=== PATIENT | female | born 1965 | race American Indian/Alaskan Native ===

== ENCOUNTER 2019-04-12 13:20 | Emergency (ER) | payer MEDICAID ==
[2019-04-12 14:14] VITALS: BP 197/84
--- NOTE | 2019-04-12 18:32 | Emergency Department Report ---
Blank Doc - Documentation Documentation: 53-year-old female that presents with nodule mass to the neck and foreign body sensation. This initial assessment/diagnostic orders/clinical plan/treatment(s) is/are subject to change based on patient's health status, clinical progression and re- assessment by fellow clinical providers in the ED. Further treatment and workup at subsequent clinical providers discretion. Patient/guardians urged not to elope from the ED as their condition may be serious if not clinically assessed and managed. Initial orders include: 1- Patient sent to [facility] for further evaluation and treatment 2- labs 3- Xray
[2019-04-12 19:03] LABS: Basophils % (Auto) 0.6 % (0.0-1.8); Eosinophils # (Auto) 0.1 K/mm3 (0.0-0.4); Eosinophils % (Auto) 1.7 % (0.0-4.3); Hemoglobin 14.8 gm/dl (10.1-14.3); Lymphocytes # (Auto) 2.4 K/mm3 (1.2-5.4); Lymphocytes % (Auto) 48.4 % (13.4-35.0); Mean Corpuscular HGB Conc 35 % (30-34); Mean Corpuscular Volume 92 fl (79-97); Monocytes # (Auto) 0.6 K/mm3 (0.0-0.8); Monocytes % (Auto) 12.4 % (0.0-7.3); Platelet Count 226 K/mm3 (140-440); Red Blood Count 4.56 M/mm3 (3.65-5.03); Red Cell Distribution Width 13.5 % (13.2-15.2)
[2019-04-12 19:25] LABS: BUN/Creatinine Ratio 13; Blood Urea Nitrogen 8 mg/dL (7-17); Hemolysis Index 6
--- NOTE | 2019-04-12 19:26 | XRay Report ---
AP AND LATERAL VIEWS OF THE NECK INDICATION: neck mass and swelling w/ foreign body sensation. COMPARISON: No relevant prior imaging study available. FINDINGS: There is no retropharyngeal/prevertebral soft tissue swelling. No radiodense foreign bodies are seen within the cervical airway. The epiglottis appears unremarkable . Cricopharyngeal calcifications are noted. Lung apices are clear. There is mild lower cervical spond ylosis. IMPRESSION: 1. No acute findings. Signer Name: Curt Joshi MD Signed: 04/12/2019 7:21 PM Workstation Name: [id number]
== END 2019-04-12 22:12 | disposition left against medical advice (07) ==
LOC: ED 13:20
DX: R22.1 Localized swelling, mass and lump, neck (principal); Z53.21 Procedure and treatment not carried out due to patient leaving prior to being seen by health care provider
CPT/HCPCS: 36415; 70360; 80048; 84443; 85025

== ENCOUNTER 2019-04-21 11:31 | Outpatient (CLI) | payer MEDICAID ==
[2019-04-21 12:34] LABS: Chol/HDL Ratio 2.78 %
[2019-04-25 12:10] LABS: Vitamin D, 25-OH, D2 <4 ng/mL
== END 2019-04-21 11:32 | disposition home or self-care (01) ==
LOC: LAB 11:31
PROVIDERS: ATTEND Internal Medicine
DX: I10 Essential (primary) hypertension (principal); E04.2 Nontoxic multinodular goiter; Z12.13 Encounter for screening for malignant neoplasm of small intestine; Z13.220 Encounter for screening for lipoid disorders; R79.89 Other specified abnormal findings of blood chemistry
CPT/HCPCS: 36415; 80061; 82306; 82607; 83036; 84443

== ENCOUNTER 2019-04-26 08:11 | Outpatient (CLI) | payer MEDICAID ==
--- NOTE | 2019-04-26 09:16 | Mammography Report ---
DIGITAL SCREENING MAMMOGRAM WITH CAD, 04/26/2019 INDICATION: Routine screening mammography. TECHNIQUE: Digital bilateral 2D mammography was obtained in the craniocaudal and mediolateral obliq ue projections. This examination was interpreted with the benefit of Computer-Aided Detection analysi s. COMPARISON: None. Her last mammogram was over 10 years ago. FINDINGS: Breast Density: The breasts are heterogeneously dense, which may obscure small masses. There is no evidence of dominant mass, suspicious calcifications or architectural distortion in eithe r breast. IMPRESSION: No mammographic evidence of malignancy. Follow up recommendation: Routine yearly BI-RADS Category 1: Negative. A "normal" or negative report should not discourage follow up or biopsy of a clinically significant f inding. A written summary of these findings will be mailed to the patient. The patient will be entered into a mammography reporting system which will generate a reminder letter for the patient's next appointmen t at the appropriate interval. The [employer] recommends yearly mammograms starting at age 40 and continuing as l bucky as a woman is in good health. Breast MRI is recommended for women with an approximate 20-25% or greater lifetime risk of breast cancer, including women with a strong family history of breast or ova zachary cancer or who have been treated for Hodgkin's disease. Signer Name: Yoni Gordillo MD Signed: 04/26/2019 9:12 AM Workstation Name: [id number]
--- NOTE | 2019-04-26 10:09 | Ultrasound Report ---
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 COMPARISON: None available. FINDINGS: RIGHT LOBE: Size = 5.6 x 1.7 x 1.4 cm. - Echogenicity: Normal. - Nodules < 1 cm: None. - Nodules >= 1 cm or Suspicious Nodules: None. LEFT LOBE: Size = 5.4 x 1.6 x 1.3 cm. - Echogenicity: Normal. - Nodules < 1 cm: None. - Nodules >= 1 cm or Suspicious Nodules: None. ISTHMUS: Normal echotexture. Thickness = 0.7 cm. - Nodules < 1 cm: None. - Nodules >= 1 cm or Suspicious Nodules: -- NODULE # 1 -- Location: isthmus -- Size: 1.4 x 1.3 x 1.4 cm. Average size = 1.4 cm. -- Composition: Mixed cystic & solid = 1 point -- Echogenicity: Hypoechoic = 2 points -- Shape: Hqlze-kima-unou = 0 points -- Margin: Smooth = 0 points -- Echogenic Foci: None = 0 points -- Additional Findings: None. -- ACR TI-RADS Score = 3. -- ACR TI-RADS Category = TR-3 (3 points). LYMPH NODES: No abnormal lymph nodes. PARATHYROID GLANDS: No abnormal parathyroid gland identified. ADDITIONAL FINDINGS: None. IMPRESSION: Thyroid nodule as above. A follow-up thyroid ultrasound in one year is recommended. NOTE: Nodule size based on mean (average) size of 3 dimensions. NOTE: Nodules < 1 cm do not typically require follow-up or FNA unless there are suspicious features ( SAMY, 2015) ACR TI-RADS Thyroid Nodule Recommendations TI-RADS 1 (0 points) ----- BENIGN. No Fine Needle Aspirate biopsy (FNA) or follow-up. TI-RADS 2 (1-2 points) -- NOT SUSPICIOUS. No FNA or follow-up. TI-RADS 3 (3 points) ----- MILDLY SUSPICIOUS. Follow up in 1 year if >= 1.5 cm. FNA if >= 2.5 cm. TI-RADS 4 (4-6 points) -- MODERATELY SUSPICIOUS. Follow up in 1 year if >= 1.0 cm. FNA if >= 1.5 cm. TI-RADS 5 (7+ points) --- HIGHLY SUSPICIOUS. Follow up in 1 year if >= 0.5 cm. FNA if >= 1.0 cm. Signer Name: Donovan Candelaria MD Signed: 04/26/2019 10:05 AM Workstation Name: [id number]
== END 2019-04-26 08:12 | disposition home or self-care (01) ==
LOC: MAMMO 08:11
PROVIDERS: ATTEND Internal Medicine
DX: Z12.31 Encounter for screening mammogram for malignant neoplasm of breast (principal); E04.2 Nontoxic multinodular goiter
CPT/HCPCS: 76536; 77067

== ENCOUNTER 2019-05-26 21:47 | Observation (INO) | payer MEDICAID ==
--- NOTE | 2019-05-26 21:53 | Emergency Department Report ---
ED Neuro Deficit HPI - General Stated Complaint: CODE STROKE Time Seen by Provider: 05/26/19 21:48 Source: patient, EMS, old records reviewed Mode of arrival: Stretcher Limitations: Other (Aphasia) - History of Present Illness Initial Comments: Mrs. Lu is a 53-year-old female history of hypertension, CVA x2 who presents with syncope and slurred speech. Family member witnessed that she appeared dazed. She briefly passed out. She then awakened with abnormal speech and un ilateral weakness possibly left side. Patient is tearful with aphasia. Unable to obtain history from patient. Symptoms occurred 30 minutes prior to arrival Patient did drink alcohol this evening. She was seen in our emergency department March for throat issues otherwise no other history available in the emergency department electronic medical record. -: Sudden Location: speech, other (Unilateral weakness) Presenting Symptoms: Present: Weak/Paralyzed One Side History of same: Yes Place: home Severity: severe Quality: weak, numb, tingling Improves With: time Context: sudden onset Associated Symptoms: syncope Treatments Prior to Arrival: none - Related Data Allergies/Adverse Reactions: Allergies Allergy/AdvReac Type Severity Reaction Status Date / Time sulfamethoxazole Allergy Hives Verified 04/12/19 13:30 [From Bactrim] trimethoprim [From Bactrim] Allergy Hives Verified 04/12/19 13:30 ED Review of Systems ROS: Stated complaint: CODE STROKE Other details as noted in HPI Comment: Unobtainable due to pts medical conditions (Patient is aphasic) ED Past Medical Hx - Past Medical History Previous Medical History?: Yes Hx Hypertension: Yes Hx CVA: Yes - Social History Smoking Status: Current Every Day Smoker Substance Use Type: Marijuana ED Neuro Physical Exam - General General appearance: alert, other (Tearful aphasic) Suspected Stroke: Yes - Head Head exam: Present: atraumatic, normocephalic - Eye Eye exam: Present: normal appearance - ENT ENT exam: Present: mucous membranes moist - Neck Neck exam: Present: normal inspection, full ROM - Respiratory Respiratory exam: Present: normal lung sounds bilaterally. Absent: respiratory distress, wheezes, rales, rhonchi - Cardiovascular Cardiovascular Exam: Present: regular rate, normal rhythm, normal heart sounds. Absent: systolic murmur, diastolic murmur, rubs, gallop - GI/Abdominal GI/Abdominal exam: Present: soft, normal bowel sounds. Absent: distended, tenderness, guarding, rebound - Extremities Exam Extremities exam: Present: normal inspection - Neurological Exam Neurological exam: Present: alert - NIHSS Assessment Interval: Baseline 1a. Level of Consciousness: alert/keenly responsive 1b. LOC Questions: aphasic 1c. LOC Commands: performs tasks correctly 2. Best Gaze: normal 3. Visual: no visual loss 4. Facial Palsy: normal symmetrical movement 5b. Motor Arm Right: no drift 5a. Motor Arm Left: no drift 6a. Motor Leg Left: no drift 6b. Motor Leg Right: no drift 7. Limb Ataxia: absent 8. Sensory: normal 9. Best Language: mild/moderate aphasia 10. Dysarthria: mild/moderate dysarthria 11. Extinction/Inattention: no abnormality Total Score: 4 Stroke Severity: Minor Stroke - Psychiatric Psychiatric exam: Present: normal affect, normal mood - Skin Skin exam: Present: warm, dry, intact, normal color. Absent: rash ED Course Vital Signs 05/26/19 05/26/19 05/26/19 22:02 22:14 22:15 Temperature 99.2 F Pulse Rate 83 68 Respiratory 14 16 Rate Blood Pressure 117/66 O2 Sat by Pulse 95 Oximetry - Lab Data Result diagrams: 05/26/19 22:15 05/26/19 22:15 Lab Results 05/26/19 05/26/19 05/26/19 Range/Units 22:15 22:15 22:15 WBC 4.7 (4.5-11.0) K/mm3 RBC 4.74 (3.65-5.03) M/mm3 Hgb 14.9 H (10.1-14.3) gm/dl Hct 43.7 H (30.3-42.9) % MCV 92 (79-97) fl MCH 32 (28-32) pg MCHC 34 (30-34) % RDW 13.2 (13.2-15.2) % Plt Count 250 (140-440) K/mm3 Lymph % (Auto) 47.2 H (13.4-35.0) % [place] % (Auto) 9.3 H (0.0-7.3) % Eos % (Auto) 2.0 (0.0-4.3) % Baso % (Auto) 1.1 (0.0-1.8) % Lymph # 2.2 (1.2-5.4) K/mm3 [place] # 0.4 (0.0-0.8) K/mm3 Eos # 0.1 (0.0-0.4) K/mm3 Baso # 0.1 (0.0-0.1) K/mm3 Seg Neutrophils % 40.4 (40.0-70.0) % Seg Neutrophils # 1.9 (1.8-7.7) K/mm3 PT 12.6 (12.2-14.9) Sec. INR 0.93 (0.87-1.13) APTT 23.5 L (24.2-36.6) Sec. Thrombin Time 17.8 (15.1-19.6) Sec. Sodium 139 (137-145) mmol/L Potassium 3.6 (3.6-5.0) mmol/L Chloride 103.4 (98-107) mmol/L Carbon Dioxide 24 (22-30) mmol/L Anion Gap 15 mmol/L BUN 15 (7-17) mg/dL Creatinine 0.8 (0.7-1.2) mg/dL Estimated GFR > 60 ml/min BUN/Creatinine Ratio 19 % Glucose 145 H (65-100) mg/dL Calcium 9.8 (8.4-10.2) mg/dL Total Bilirubin 0.20 (0.1-1.2) mg/dL AST 36 (5-40) units/L ALT 41 (7-56) units/L Alkaline Phosphatase 80 (35-129) units/L Troponin T < 0.010 (0.00-0.029) ng/mL Total Protein 8.1 (6.3-8.2) g/dL Albumin 4.1 (3.9-5) g/dL Albumin/Globulin Ratio 1.0 % Plasma/Serum Alcohol (0-0.07) % 04/03/ Range/Units 22:15 WBC (4.5-11.0) K/mm3 RBC (3.65-5.03) M/mm3 Hgb (10.1-14.3) gm/dl Hct (30.3-42.9) % MCV (79-97) fl MCH (28-32) pg MCHC (30-34) % RDW (13.2-15.2) % Plt Count (140-440) K/mm3 Lymph % (Auto) (13.4-35.0) % [place] % (Auto) (0.0-7.3) % Eos % (Auto) (0.0-4.3) % Baso % (Auto) (0.0-1.8) % Lymph # (1.2-5.4) K/mm3 [place] # (0.0-0.8) K/mm3 Eos # (0.0-0.4) K/mm3 Baso # (0.0-0.1) K/mm3 Seg Neutrophils % (40.0-70.0) % Seg Neutrophils # (1.8-7.7) K/mm3 PT (12.2-14.9) Sec. INR (0.87-1.13) APTT (24.2-36.6) Sec. Thrombin Time (15.1-19.6) Sec. Sodium (137-145) mmol/L Potassium (3.6-5.0) mmol/L Chloride (98-107) mmol/L Carbon Dioxide (22-30) mmol/L Anion Gap mmol/L BUN (7-17) mg/dL Creatinine (0.7-1.2) mg/dL Estimated GFR ml/min BUN/Creatinine Ratio % Glucose (65-100) mg/dL Calcium (8.4-10.2) mg/dL Total Bilirubin (0.1-1.2) mg/dL AST (5-40) units/L ALT (7-56) units/L Alkaline Phosphatase (35-129) units/L Troponin T (0.00-0.029) ng/mL Total Protein (6.3-8.2) g/dL Albumin (3.9-5) g/dL Albumin/Globulin Ratio % Plasma/Serum Alcohol < 0.01 (0-0.07) % - EKG Data -: EKG Interpreted by Me EKG shows normal: sinus rhythm, axis, intervals, QRS complexes, ST-T waves Rate: normal Interpretation: normal EKG - Radiology Data Radiology results: report reviewed CT head without acute process AP portable chest left basilar atelectasis or airspace disease developing - Medical Decision Making Ms. Lu presents with syncope slurred speech general weakness. Normal exam but exception of dysarthria aphasia. I agree with tele-neurologist. She has not currently a candidate for thrombolytics TPA with minor symptoms and equivocal examination. According to tele-neurologist's recommendations we will admit to the hospital service for observation blood pressure control neurochecks. I reviewed the images of chest x-ray: I do not suspect acute infectious process. Patient does not have fever cough. Critical Care Time: Yes Critical care attestation.: If time is entered above; I have spent that time in minutes in the direct care of this critically ill patient, excluding procedure time. 40 minutes of critical care time excluding procedures were used in the care of the patient. I reviewed electronic record. I discussed treatment plan with the nursing team members at the bedside. I came immediately to the bedside upon arrival. I obtained history from EMS. Code stroke was initiated prior to patient's arrival.Patient required multiple interventions and reassessments. ED Disposition Clinical Impression: Syncope, Hypertensive urgency, TIA (transient ischemic attack) Disposition: OP ADMIT IP TO THIS HOSP Is pt being admited?: Yes Does the pt Need Aspirin: No Condition: Stable
[2019-05-26] MEDS ORDERED: ASPIRIN 81 MG TAB CHEW PO ONE (22:09)
--- NOTE | 2019-05-26 22:09 | Emergency Department Report ---
ED Neuro Deficit HPI - General Stated Complaint: CODE STROKE Time Seen by Provider: 05/26/19 21:48 Source: patient, EMS, old records reviewed Mode of arrival: Stretcher Limitations: Other (Aphasia) - History of Present Illness Initial Comments: [facility] Date of Service: 05/26/2019 21:43:08 Impression: AMS Comments/Sign-Out: Acute onset loss of consciousness event with associated etoh intoxication. Non focal exam except for sensory asymm and effort dependent sx x 4 extremitites (conversion in appearance). Due to previous stroke admit for eval Metrics: Last Known Well: 05/26/2019 21:15:00 [employer] Notification Time: 05/26/2019 21:42:32 Arrival Time: 05/26/2019 21:47:00 Stamp Time: 05/26/2019 21:43:08 Time First Login Attempt: 05/26/2019 21:48:04 Video Start Time: 05/26/2019 21:48:04 Symptoms: LOC NIHSS Start Assessment Time: 05/26/2019 22:01:43 Patient is not a candidate for tPA. Patient was not deemed candidate for tPA thrombolytics because of Resolved symptoms (no residual disabling symptoms). Video End Time: 05/26/2019 22:06:52 CT head showed no acute hemorrhage or acute core infarct. Clinical Presentation is not Suggestive of Large Vessel Occlusive Disease ED Physician notified of diagnostic impression and management plan on 05/26/2019 22:06:51 Our recommendations are outlined below. Recommendations: Activate Stroke Protocol Admission/Order Set Stroke/Telemetry Floor Neuro Checks Bedside Swallow Eval DVT Prophylaxis IV Fluids, Normal Saline Head of Bed Below 30 Degrees Euglycemia and Avoid Hyperthermia (PRN Acetaminophen) Antiplatelet Therapy Recommended EEG Cardiovascular work up for syncope Recommended Scan: MRI Head MRA Head and Neck Without Contrast When Available - Stroke Protocol Echocardiogram - Transthoracic Echocardiogram Lipid Panel to Be Obtained, if Not Done in the Last 30 Days Therapies: Physical Therapy, Occupational Therapy, Speech Therapy Assessment When Applicable Dysphaghia Screen: Swallow Evaluation, Bedside NPO Until Swallow Evaluation DVT prophylaxis: Choice of Primary Team Disposition: Neurology Follow Up Recommended Sign Out: Discussed with Emergency Department Provider History of Present Illness: Patient is a 53 year old Female. Patient was brought by EMS for symptoms of LOC Hx of HTN and Stroke. Was with family and noted to be starring out in to space and LOC event, awoke with slurred speech and right sided weakness. ED staff noting strong etoh smell CT head showed no acute hemorrhage or acute core infarct. Examination: BP(188/89), Blood Glucose(114) 1A: Level of Consciousness - Alert; keenly responsive + 0 1B: Ask Month and Age - Both Questions Right + 0 1C: Blink Eyes & Squeeze Hands - Performs Both Tasks + 0 2: Test Horizontal Extraocular Movements - Normal + 0 3: Test Visual Rojas - No Visual Loss + 0 4: Test Facial Palsy (Use Grimace if Obtunded) - Normal symmetry + 0 5A: Test Left Arm Motor Drift - No Drift for 10 Seconds + 0 5B: Test Right Arm Motor Drift - No Drift for 10 Seconds + 0 6A: Test Left Leg Motor Drift - No Drift for 5 Seconds + 0 6B: Test Right Leg Motor Drift - No Drift for 5 Seconds + 0 7: Test Limb Ataxia (FNF/Heel-Ghotra) - No Ataxia + 0 8: Test Sensation - Mild-Moderate Loss: Less Sharp/More Dull + 1 9: Test Language/Aphasia - Normal; No aphasia + 0 10: Test Dysarthria - Normal + 0 11: Test Extinction/Inattention - No abnormality + 0 NIHSS Score: 1 Patient was informed the Neurology Consult would happen via TeleHealth consult by way of interactive audio and video telecommunications and consented to receiving care in this manner. Due to the immediate potential for life-threatening deterioration due to underlying acute neurologic illness, I spent 35 minutes providing critical care. This time includes time for face to face visit via telemedicine, review of medical records, imaging studies and discussion of findings with providers, the patient and/or family. Dr Kendrick [facility] Case [id number] Location: speech, other (Unilateral weakness) History of same: Yes Place: home Severity: severe Quality: weak, numb, tingling Improves With: time Treatments Prior to Arrival: none - Related Data Allergies/Adverse Reactions: Allergies Allergy/AdvReac Type Severity Reaction Status Date / Time sulfamethoxazole Allergy Hives Verified 04/12/19 13:30 [From Bactrim] trimethoprim [From Bactrim] Allergy Hives Verified 04/12/19 13:30 ED Review of Systems ROS: Stated complaint: CODE STROKE Other details as noted in HPI ED Past Medical Hx - Past Medical History Previous Medical History?: Yes Hx Hypertension: Yes Hx CVA: Yes - Social History Smoking Status: Current Every Day Smoker Substance Use Type: Marijuana ED Neuro Physical Exam - General Limitations: Other (Aphasia) General appearance: alert, other (Tearful aphasic) Suspected Stroke: No Critical care attestation.: If time is entered above; I have spent that time in minutes in the direct care of this critically ill patient, excluding procedure time. ED Disposition Clinical Impression: Syncope Disposition: [id number] OP ADMIT IP TO THIS HOSP Is pt being admited?: Yes Condition: Stable Instructions: Syncope (ED) Referrals: PRIMARY CARE, [Primary Care Provider] - 3-5 Days
[2019-05-26 22:23] LABS: Basophils # (Auto) 0.1 K/mm3 (0.0-0.1); Basophils % (Auto) 1.1 % (0.0-1.8); Eosinophils # (Auto) 0.1 K/mm3 (0.0-0.4); Hematocrit 43.7 % (30.3-42.9); Hemoglobin 14.9 gm/dl (10.1-14.3); Lymphocytes # (Auto) 2.2 K/mm3 (1.2-5.4); Lymphocytes % (Auto) 47.2 % (13.4-35.0); Mean Corpuscular HGB Conc 34 % (30-34); Mean Corpuscular Volume 92 fl (79-97); Monocytes # (Auto) 0.4 K/mm3 (0.0-0.8); Monocytes % (Auto) 9.3 % (0.0-7.3); Platelet Count 250 K/mm3 (140-440); Red Blood Count 4.74 M/mm3 (3.65-5.03); Red Cell Distribution Width 13.2 % (13.2-15.2)
--- NOTE | 2019-05-26 22:23 | Cat Scan Report ---
CT head/brain wo con INDICATION: Stroke symptoms CODE STROKE. TECHNIQUE: Routine CT head without contrast. All CT scans at this location are performed using CT dos e reduction for ALARA by means of automated exposure control. COMPARISON: None. FINDINGS: BRAIN / INTRACRANIAL CONTENTS: No acute hemorrhage, mass effect, midline shift, or hydrocephalus. No appreciable acute large territorial or lacunar infarct. No chronic infarct or focal atrophy. Normal b rain volume and ventricular/sulcal size for age. ORBITS: No significant abnormality of visualized orbits. SINUSES / MASTOIDS: No significant abnormality of visualized sinuses and mastoid air cells. ADDITIONAL FINDINGS: None. IMPRESSION: 1. No acute intracranial abnormality. Signer Name: Julien Haley MD Signed: 05/26/2019 10:19 PM Workstation Name: [id number]
[2019-05-26 22:41] LABS: INR 0.93 (0.87-1.13)
[2019-05-26 22:42] LABS: Partial Thromboplastin Time 23.5 Sec. (24.2-36.6); Thrombin Time 17.8 Sec. (15.1-19.6)
--- NOTE | 2019-05-26 22:44 | XRay Report ---
CHEST 1 VIEW INDICATION / CLINICAL INFORMATION: Syncope stroke. COMPARISON: None available. FINDINGS: SUPPORT DEVICES: None. HEART / MEDIASTINUM: No significant abnormality. LUNGS / PLEURA: Hazy density is identified in the left lower hemithorax. No pneumothorax. ADDITIONAL FINDINGS: No significant additional findings. IMPRESSION: 1. Left basilar pleural-parenchymal opacity has appearance of either atelectasis or developing airspa ce disease. Signer Name: Ashok Willett MD Signed: 05/26/2019 10:39 PM Workstation Name: [id number]
[2019-05-26 23:05] LABS: Alanine Aminotransferase 41 units/L (7-56); Albumin 4.1 g/dL (3.9-5); BUN/Creatinine Ratio 19; Blood Urea Nitrogen 15 mg/dL (7-17); Calcium 9.8 mg/dL (8.4-10.2); Hemolysis Index 7
[2019-05-26] MEDS ORDERED: MAGNESIUM HYDROXIDE (MOM) ORAL LIQD UDC PO PRN ×2 (23:47)
[2019-05-26] MEDS ORDERED: ONDANSETRON 4 MG/2 ML INJ IV PRN ×2 (23:47)
[2019-05-26] MEDS ORDERED: MORPHINE 2 MG/1 ML INJ IV PRN (23:47)
[2019-05-26] MEDS ORDERED: ACETAMINOPHEN 325 MG TAB PO PRN ×2 (23:47)
[2019-05-26] MEDS ORDERED: METOCLOPRAMIDE 10 MG TAB PO PRN (23:47)
[2019-05-26] MEDS ORDERED: PROMETHAZINE 25 MG RECT SUPP PR PRN (23:47)
--- NOTE | 2019-05-27 00:01 | History and Physical Report ---
History of Present Illness Date of examination: 05/26/19 Date of admission: 05/26/2019 Chief complaint: Aphasia Syncope History of present illness: 53-year-old female with known history of hypertension, history of CVA in the past presenting to the emergency room today complaining of difficulty with speech and syncope. She indicates she was speaking with a family member and she suddenly became lightheaded and had a syncope. She denies any headache, no fever or chills, no nausea vomiting, no chest pain or shortness of breath. She denies having similar episodes in the past. She admits to drinking some alcohol earlier today but she indicates she does not drink drink excessively. Upon arrival in the emergency room she was found to be having difficulty with sp eech and also complained of some left-sided weakness. Telemetry neurologist was consulted and patient was deemed not to be a TPA candidate. She is therefore admitted for work-up for syncope and possible TIA/CVA. Past History Past Medical History: hypertension, hyperlipidemia Past Surgical History: hysterectomy Social history: smoking, alcohol abuse, other (Uses Marijuana occasionally) Family history: no significant family history Medications and Allergies Allergies Allergy/AdvReac Type Severity Reaction Status Date / Time sulfamethoxazole Allergy Hives Verified 04/12/19 13:30 [From Bactrim] trimethoprim [From Bactrim] Allergy Hives Verified 04/12/19 13:30 Review of Systems Constitutional: no fever, no chills Cardiovascular: syncope, lightheadedness, no chest pain, no palpitations Respiratory: no cough, no shortness of breath Gastrointestinal: no abdominal pain, no nausea, no vomiting, no diarrhea Genitourinary Female: no flank pain, no dysuria, no hematuria Musculoskeletal: no neck pain, no low back pain Integumentary: no rash, no pruritis Neurological: numbness, aphasia, change in speech, change in mentation, no headaches Exam - Constitutional Vitals: Temp Pulse Resp BP Pulse Ox 99.2 F 63 20 146/73 95 05/26/19 22:14 05/26/19 23:45 05/26/19 23:45 05/26/19 23:45 05/26/19 23:45 General appearance: Present: no acute distress, well-nourished - EENT Eyes: Present: PERRL, EOM intact ENT: hearing intact, clear oral mucosa, dentition normal - Neck Neck: Present: supple, normal ROM - Respiratory Respiratory effort: normal Respiratory: bilateral: CTA - Cardiovascular Rhythm: regular Heart Sounds: Present: S1 & S2 - Extremities Extremities: no ischemia, pulses intact, pulses symmetrical, No edema, Full ROM Peripheral Pulses: within normal limits - Abdominal General gastrointestinal: Present: soft, tender, non-distended, normal bowel conor nds - Integumentary Integumentary: Present: clear, warm, dry - Musculoskeletal Musculoskeletal: left sided weakness (Mild) - Psychiatric Psychiatric: appropriate mood/affect, intact judgment & insight - Neurologic Neurologic: CNII-XII intact, moves all extremities Results - Labs CBC & Chem 7: 05/26/19 22:15 05/26/19 22:15 Labs: Abnormal lab results 05/26/19 05/26/19 05/26/19 Range/Units 22:15 22:15 22:15 Hgb 14.9 H (10.1-14.3) gm/dl Hct 43.7 H (30.3-42.9) % Lymph % (Auto) 47.2 H (13.4-35.0) % [place] % (Auto) 9.3 H (0.0-7.3) % APTT 23.5 L (24.2-36.6) Sec. Glucose 145 H (65-100) mg/dL Assessment and Plan - Patient Problems (1) TIA (transient ischemic attack) Current Visit: Yes Status: Acute Plan to address problem: Patient will be worked up for possible CVA. Will place patient on daily aspirin. She will be scheduled for carotid Doppler, MRI of the brain . We will request neurology evaluation and recommendation (2) Syncope Current Visit: Yes Status: Acute Plan to address problem: Patient be closely monitored on telemetry. We also scheduled for an ec hocardiogram. (3) Hypertensive urgency Current Visit: Yes Status: Acute Plan to address problem: Blood pressure was elevated upon arrival in the ER. We will reconcile and resume routine home medications and monitor vital signs closely. (4) DVT prophylaxis Current Visit: Yes Status: Acute Plan to address problem: Patient placed on subcutaneous heparin. (5) Full code status Current Visit: Yes Status: Acute
[2019-05-27 02:53] LABS: Bacteria,Urine 1+ /HPF (Negative); Bilirubin,Urine NEG (Negative); Blood,Urine NEG (Negative); Color,Urine Yellow (Yellow); Hyaline Casts,Urine 4 /LPF; Mucus,Urine FEW /HPF; Protein,Urine <15 mg/dL mg/dL (Negative)
[2019-05-27 03:00] LABS: Amphetamine Screen,Urine PRESUMPTIVE NEGATIVE; Benzodiazepines Screen,Urine PRESUMPTIVE NEGATIVE; Cocaine Screen,Urine PRESUMPTIVE NEGATIVE; Methadone Screen,Urine PRESUMPTIVE NEGATIVE; Opiate Screen,Urine PRESUMPTIVE NEGATIVE
[2019-05-27 03:02] LABS: Cannabinoid Screen,Urine PRESUMPTIVE POSITIVE
[2019-05-27 04:41] LABS: Basophils % (Auto) 0.3 % (0.0-1.8); Eosinophils # (Auto) 0.1 K/mm3 (0.0-0.4); Eosinophils % (Auto) 1.4 % (0.0-4.3); Hematocrit 43.2 % (30.3-42.9); Hemoglobin 14.5 gm/dl (10.1-14.3); Lymphocytes % (Auto) 39.3 % (13.4-35.0); Mean Corpuscular HGB Conc 34 % (30-34); Mean Corpuscular Volume 93 fl (79-97); Monocytes # (Auto) 0.6 K/mm3 (0.0-0.8); Monocytes % (Auto) 11.1 % (0.0-7.3); Platelet Count 233 K/mm3 (140-440); Red Blood Count 4.66 M/mm3 (3.65-5.03); Red Cell Distribution Width 13.3 % (13.2-15.2)
[2019-05-27 04:46] LABS: INR 0.98 (0.87-1.13); Partial Thromboplastin Time 26.4 Sec. (24.2-36.6)
[2019-05-27 06:06] LABS: BUN/Creatinine Ratio 26; Blood Urea Nitrogen 18 mg/dL (7-17); Calcium 9.6 mg/dL (8.4-10.2); Chol/HDL Ratio 2.27 %; HDL Cholesterol 54 mg/dL (40-59); Hemolysis Index 16; LDL Cholesterol,Direct 61 mg/dL (50-130)
[2019-05-27] MEDS: HEPARIN 5,000 UNIT/1 ML VIAL SUB-Q SCH ×2 (08:08→13:52)
[2019-05-27] MEDS ORDERED: ASPIRIN 325 MG TAB PO SCH (10:00)
--- NOTE | 2019-05-27 13:50 | Magnetic Resonance Report ---
MRI BRAIN WITHOUT CONTRAST INDICATION / CLINICAL INFORMATION: stroke. TECHNIQUE: Multiplanar, multisequence MR images of the brain were obtained. COMPARISON: Head CT 05/26/2019 FINDINGS: BRAIN / INTRACRANIAL CONTENTS: Ventricles and cortical sulci are normal in size and configuration. Th ere is no mass effect. No evidence of intracranial hemorrhage or extra-axial fluid collection is seen . Mild periventricular, deep white matter and subcortical white matter hyperintensities are noted in both cerebral hemispheres. These are considered abnormal findings in this 53-year-old individual. Mos t likely explanation for these changes is the presence of premature microvascular ischemia. Are there risk factors including hypertension, diabetes, cigarette smoking or hyperlipidemia No additional are as of abnormal brain parenchymal signal intensity are identified. There is no indication of remote co rtical infarction. Diffusion weighted scans are negative. There is no indication of acute or subacute ischemic injury. The brainstem and cerebellum have an unremarkable appearance. CRANIOCERVICAL JUNCTION: No abnormalities are identified at the craniocervical junction. VASCULAR FLOW-VOIDS: Normal flow-voids are present within the major intracranial vessels. ORBITS: The orbits have an unremarkable appearance. SINUSES / MASTOIDS: There is no indication of inflammatory disease in the paranasal sinuses or mastoi d air cells. ADDITIONAL FINDINGS: None. IMPRESSION: 1. No indication of recent infarction, hemorrhage or mass effect. Signer Name: Khoi Owusu MD Signed: 05/27/2019 1:45 PM Workstation Name: [id number]
[2019-05-27 16:36] VITALS: BP 152/72
--- NOTE | 2019-05-27 16:40 | Discharge Summary ---
Providers - Providers Date of Admission: 05/26/19 23:09 Date of discharge: 05/27/19 Attending physician: ALAINA ROPER 05/26/19 Consult to Physician [CONS] Routine Comment: Consulting Provider: NICHOLE WATT Physician Instructions: Reason For Exam: TIA R/O CVA 05/26/19 23:48 Consult to Dietitian/Nutrition [CONS] Routine Physician Instructions: Reason For Exam: Reason for Consult: Nutrition Recommendations Reason for Consult: Diet education Occupational Therapy Evaluate and Treat [CONS] Routine Comment: Reason For Exam: Neuro deficits Physical Therapy Evaluation and Treat [CONS] Routine Comment: Reason For Exam: Neuro deficits Primary care physician: HEARING EXAMINER Hospitalization Condition: Stable Pertinent studies: MRI brain negative Echo normal Hospital course: 53-year-old female with known history of hypertension, history of CVA in the past presenting to the emergency room today complaining of difficulty with speech and syncope. She indicates she was speaking with a family member and she suddenly became lightheaded and had a syncope. She denies any headache, no fever or chills, no nausea vomiting, no chest pain or shortness of breath. She denies having similar episodes in the past. She admits to drinking some alcohol earlier today but she indicates she does not drink drink excessively. Upon arrival in the emergency room she was found to be having difficulty with speech and also complained of some left-sided weakness. Telemetry neurologist was consulted and patient was deemed not to be a TPA candidate. She is therefore admitted for work-up for syncope and possible TIA/CVA. Past History Past Medical History: hypertension, hyperlipidemia Past Surgical History: hysterectomy Social history: smoking, alcohol abuse, other (Uses Marijuana occasionally) Family history: no significant family history (1) TIA (transient ischemic attack) Current Visit: Yes Status: Acute Plan to address problem: MRI brain negative no new infarct TIA resolved (2) Syncope Current Visit: Yes Status: Acute Plan to address problem: Work-up negative (3) Hypertensive urgency Current Visit: Yes Status: Acute Plan to address problem: Blood pressure trending normal No need for blood pressure medications Aspirin 81 mg once a day Disposition: TO HOME OR SELFCARE Core Measure Documentation - Palliative Care Palliative Care/ Comfort Measures: Not Applicable - Core Measures Any of the following diagnoses?: none Exam - Constitutional Vitals: Temp Pulse Resp BP Pulse Ox 98.7 F 53 L 18 152/72 97 05/27/19 16:24 05/27/19 16:24 05/27/19 16:24 05/27/19 16:24 05/27/19 16:24 General appearance: Present: no acute distress, well-nourished - EENT Eyes: Present: PERRL ENT: hearing intact, clear oral mucosa - Neck Neck: Present: supple, normal ROM - Respiratory Respiratory effort: normal Respiratory: bilateral: CTA - Cardiovascular Heart Sounds: Present: S1 & S2. Absent: rub, click - Extremities Extremities: pulses symmetrical, No edema Peripheral Pulses: within normal limits - Abdominal General gastrointestinal: Present: soft, non-tender, non-distended, normal bowel sounds Female genitourinary: Present: normal - Integumentary Integumentary: Present: clear, warm, dry - Musculoskeletal Musculoskeletal: gait normal, strength equal bilaterally - Psychiatric Psychiatric: appropriate mood/affect, intact judgment & insight - Neurologic Neurologic: CNII-XII intact, moves all extremities Plan Activity: no restrictions Diet: low salt Follow up with: PRIMARY CAREMD [Primary Care Provider] - 7 Days
== END 2019-05-27 17:25 | disposition home or self-care (01) ==
LOC: ED 21:47 → 4A 23:09
PROVIDERS: ADMIT Internal Medicine Geriatric Medicine; ATTEND Internal Medicine
DX: G45.9 Transient cerebral ischemic attack, unspecified (principal); R55 Syncope and collapse; I16.0 Hypertensive urgency; I10 Essential (primary) hypertension; E78.5 Hyperlipidemia, unspecified; F17.200 Nicotine dependence, unspecified, uncomplicated; Z90.710 Acquired absence of both cervix and uterus
CPT/HCPCS: 36415; 70450; 70551; 71045; 80048; 80053; 80061; 80307; 81001; 82962; 84484; 85025; 85610; 85670; 85730; 93005; 93010; 93306; 96372; 97161; 99291; G0378; J1644; 80320; G0480

== ENCOUNTER 2019-09-08 07:58 | Day surgery (SDC) | payer MEDICAID ==
[~2019-09-08 07:58] MED LIST: SODIUM CHLORIDE 0.9% 1000 ML 1,000 ML IV SCH
[2019-09-08] MEDS ORDERED: SODIUM CHLORIDE 0.9% 1000 ML 1,000 ML ONE (08:14)
[2019-09-08] MEDS ORDERED: LIDOCAINE MPF (2%) 20 MG/1 ML VIAL 5 ML ONE (08:30)
--- NOTE | 2019-09-08 09:33 | Anesthesia Consultation ---
Anesthesia Consult and Med Hx Date of service: 09/08/19 - Airway Anesthetic Teeth Evaluation: Good ROM Head & Neck: Adequate Mental/Hyoid Distance: Adequate Mallampati Class: Class III Intubation Access Assessment: Possibly Difficult - Pulmonary Exam CTA: Yes - Cardiac Exam Cardiac Exam: RRR - Pre-Operative Health Status ASA Pre-Surgery Classification: ASA3 Proposed Anesthetic Plan: MAC - Pulmonary Hx Smoking: Yes Hx Asthma: Yes (no recent exacerbations) Hx Respiratory Symptoms: No - Cardiovascular System Hx Hypertension: Yes Hx Heart Attack/AMI: No Hx Percutaneous Transluminal Coronary Angioplasty (PTCA): No Hx Cardia Arrhythmia: No - Central Nervous System CVA: Yes (2014; no deficits) - Gastrointestinal Hx Gastroesophageal Reflux Disease: No - Endocrine Hx Renal Disease: No Hx Liver Disease: No Hx Insulin Dependent Diabetes: No Hx Non-Insulin Dependent Diabetes: No Hx Thyroid Disease: No - Other Systems Hx Obesity: Yes (BMI 32) - Additional Comments Anesthesia Medical History Comments: No hx anesthetic complications.
--- NOTE | 2019-09-08 09:34 | Anesthesia Day of Surgery ---
Anesthesia Day of Surgery - Day of Surgery Patient Examined: Yes Patient H&P Reviewed: Yes Patient is NPO: Yes
[2019-09-08] MEDS ORDERED: propofoL 200 MG/20 ML VIAL IV ONE ×3 (10:52→11:19)
--- NOTE | 2019-09-08 11:31 | Procedure Note ---
Date of procedure: 09/08/19 Pre-op diagnosis: Colon Polyp Screening Post-op diagnosis: other (Colon Polyps (Transverse Colon and Rectum)/Moderate,Left colon Diverticular Disease/ Mild to Moderate Internal Hemorrhoids) Procedure: Colonoscopy with Cold, Snare Polypectomy and Cold Biopsy Anesthesia: MAC Surgeon: ZO STANFORD Estimated blood loss: minimal Pathology: list Specimen disposition: to lab Condition: stable Disposition: same day (Avoid aspirin and NSAID for 4 days otherwise resume home medication. Encourage fiber intake and follow up in 1 to 2 weeks ([phone]).)
--- NOTE | 2019-09-08 11:37 | Operative Report ---
PROCEDURE: Colonoscopy. INDICATION: A 54-year-old -[place] female with an underlying history of hypertension, history of mild CVA without any residual effect. The patient has been adopted and does not have a family history to give. Colonoscopy was done as part of colon polyp screening. Because of her age, no prior history of colonoscopy. DESCRIPTION OF PROCEDURE: Initial rectal exam procedure was done in the GI lab with assistance of the GI lab team under anesthesia with MAC anesthesia. Initial rectal exam was unremarkable. Instrument was passed through the rectum onto the cecum, which was identified with ileocecal valve and the appendiceal orifice. The cecum was also viewed on the retroverted view, which did not show any additional pathology. Cecum, ascending colon showed normal mucosa. In the mid transverse colon, there were two 9-10 mm sessile polyps noted that were removed by cold snare polypectomy and retrieved with a cold biopsy. The left colon, especially in the descending colon and the sigmoid had moderate diverticular disease and the rectum showed 2 small polyps that were removed by cold biopsy. The rectum on the retroverted view showed mild to moderate internal hemorrhoid. There was minimal bleeding associated with the procedure. No complications associated with the procedure. DIAGNOSIS: Colon polyp screening, colon polyps involving the transverse colon and the rectum. Rectal polyps are small. Transverse colon polyps removed by cold snare polypectomy. Moderate left colon diverticular disease, mild to moderate internal hemorrhoid. There was minimal bleeding associated with the procedure. The patient will be asked to resume home medications, but to avoid aspirin and aspirin-related products for the next 4 days. Encourage fiber supplements and follow up in the office in 1-2 weeks' time. Procedure was done in the GI lab with assistance of the GI lab team, which included paddy Chou Terell and with assistance of anesthesia. JOB# [id number] ELENA/ABHILASH
[2019-09-08 12:03] VITALS: BP 154/77
--- NOTE | 2019-09-08 13:00 | Post Anesthesia Evaluation ---
- Post Anesthesia Evaluation Patient Participated: Yes Airway Patent: Yes Stable Respiratory Function: Yes Nausea/Vomiting: No Temp > 96.8F: Yes Pain Manageable: Yes Adequeate Hydration: Yes Anesthesia Complications: No
== END 2019-09-08 12:36 | disposition home or self-care (01) ==
LOC: GIO 07:58
DX: Z12.11 Encounter for screening for malignant neoplasm of colon (principal); K63.5 Polyp of colon; K62.1 Rectal polyp; K57.30 Diverticulosis of large intestine without perforation or abscess without bleeding; K64.8 Other hemorrhoids; F17.210 Nicotine dependence, cigarettes, uncomplicated; I10 Essential (primary) hypertension; J45.909 Unspecified asthma, uncomplicated; E66.9 Obesity, unspecified; Z98.890 Other specified postprocedural states; Z79.82 Long term (current) use of aspirin; Z79.899 Other long term (current) drug therapy; Z68.32 Body mass index [BMI] 32.0-32.9, adult; Z86.73 Personal history of transient ischemic attack (TIA), and cerebral infarction without residual deficits; Z88.8 Allergy status to other drugs, medicaments and biological substances
CPT/HCPCS: 45380; 45385; 88305; J2704; J7030

== ENCOUNTER 2020-10-08 17:00 | Emergency (ER) | payer MEDICAID ==
[2020-10-08 19:07] VITALS: BP 168/105
--- NOTE | 2020-10-08 19:41 | Emergency Department Report ---
ED Extremity Problem HPI - General Chief complaint: Extremity Injury, Lower Stated complaint: LEG PAIN BOTH LEGS Time Seen by Provider: 10/08/20 19:24 Source: patient Mode of arrival: Wheelchair Limitations: Physical Limitation - History of Present Illness Initial comments: Patient is a 55-year-old female presents emergency room with complaints of bilat eral lower extremity pain for a month. He states that the pain is from her knees to her toes. She states that it feels like a burning tingling sensation. She states her pain increases with ambulation but she is ambulatory at home. She denies any leg swelling or weakness. She states that occasionally feels like muscle spasms. She reports that she saw her primary care doctor and was started on Mobic. She denies any recent travel, recent surgery, hormone use. She denies any chest pain or shortness of breath. Past medical history of hypertension, CVA, asthma. Allergy to Bactrim. Severity scale (0 -10): 10 - Related Data Home Medications Medication Instructions Recorded Confirmed Last Taken AtorvaSTATin [Lipitor] 40 mg PO DAILY 09/08/19 09/08/19 09/07/19 09:00 Previous Rx's Medication Instructions Recorded Last Taken Type Aspirin EC [Ecotrin] 81 mg PO QDAY #30 tablet. 05/27/19 09/07/19 09:00 Rx Gabapentin 100 mg PO TID #90 capsule 10/08/20 Unknown Rx Meloxicam [Mobic] 15 mg PO DAILY #10 tablet 10/08/20 Unknown Rx Menthol/Camphor [Wallis Valentine 1 applicatio TP BID #18 oint...g. 10/08/20 Unknown Rx Ointment] traMADoL [Ultram 50 MG tab] 50 mg PO Q6HR PRN #12 tablet 10/08/20 Unknown Rx Allergies Allergy/AdvReac Type Severity Reaction Status Date / Time sulfamethoxazole Allergy Hives Verified 04/12/19 13:30 [From Bactrim] trimethoprim [From Bactrim] Allergy Hives Verified 04/12/19 13:30 ED Review of Systems ROS: Stated complaint: LEG PAIN BOTH LEGS Other details as noted in HPI Comment: All other systems reviewed and negative ED Past Medical Hx - Past Medical History Previous Medical History?: Yes Hx Hypertension: Yes Hx CVA: Yes Hx Heart Attack/AMI: No Hx Congestive Heart Failure: No Hx Diabetes: No Hx Liver Disease: No Hx Renal Disease: No Hx Asthma: Yes (no recent exacerbations) Hx COPD: No - Surgical History Past Surgical History?: No - Social History Smoking Status: Current Every Day Smoker - Medications Home Medications: Home Medications Medication Instructions Recorded Confirmed Last Taken Type Aspirin EC [Ecotrin] 81 mg PO QDAY #30 tablet. 05/27/19 09/08/19 09/07/19 09:00 Rx AtorvaSTATin [Lipitor] 40 mg PO DAILY 09/08/19 09/08/19 09/07/19 09:00 History Gabapentin 100 mg PO TID #90 capsule 10/08/20 Unknown Rx Meloxicam [Mobic] 15 mg PO DAILY #10 tablet 10/08/20 Unknown Rx Menthol/Camphor [Wallis Valentine 1 applicatio TP BID #18 oint...g. 10/08/20 Unknown Rx Ointment] traMADoL [Ultram 50 MG tab] 50 mg PO Q6HR PRN #12 tablet 10/08/20 Unknown Rx ED Physical Exam - General Limitations: Physical Limitation General appearance: alert, in no apparent distress - Head Head exam: Present: atraumatic, normocephalic - Eye Eye exam: Present: normal appearance - ENT ENT exam: Present: mucous membranes moist - Respiratory Respiratory exam: Absent: respiratory distress, accessory muscle use - Extremities Exam Extremities exam: Present: other (mild ttp to the BLE in the anterior hodge, no leg edema, no skin changes, FROM of the BLE, no deformity, neurovascularly intact, negative homans sign) - Neurological Exam Neurological exam: Present: alert, oriented X3 - Psychiatric Psychiatric exam: Present: normal affect, normal mood - Skin Skin exam: Present: warm, dry, intact ED Course Vital Signs 10/08/20 19:04 Temperature 98.2 F Pulse Rate 64 Respiratory 18 Rate Blood Pressure 168/105 [Right] O2 Sat by Pulse 97 Oximetry ED Medical Decision Making - Medical Decision Making Patient is a 55-year-old female presents emergency room with complaints of bilateral lower extremity pain for a month. He states that the pain is from her knees to her toes. She states that it feels like a burning tingling sensation. She states her pain increases with ambulation but she is ambulatory at home. She denies any leg swelling or weakness. She states that occasionally feels l bharat muscle spasms. She reports that she saw her primary care doctor and was started on Mobic. She denies any recent travel, recent surgery, hormone use. She denies any chest pain or shortness of breath. Past medical history of hypertension, CVA, asthma. Allergy to Bactrim. Vitals with mildly elevated blood pressure, patient has chronic hypertension, patient does not have any symptoms related to elevated blood pressure, discussed the importance of primary care follow-up. On exam:mild ttp to the BLE in the anterior hodge, no leg edema, no skin changes, FROM of the BLE, no deformity, neurovascularly intact, negative homans sign. Patient has no clinical signs of DVT or acute arterial occlusion at this time. No clinical signs of cellulitis or septic joint. Patient has had these symptoms for a month. Patient will be referred to primary care doctor and orthopedic. Symptoms could be related to arthritis versus neuropathy. Patient given prescription for medications. Discussed the i mportance of outpatient follow-up. Discussed very strict return precautions with patient. Advised patient Please use medication as prescribed. Please follow-up with your primary care doctor. Follow-up with orthopedic doctor. Return to emergency room for any new or worsening symptoms. Critical care attestation.: If time is entered above; I have spent that time in minutes in the direct care of this critically ill patient, excluding procedure time. ED Disposition Clinical Impression: Bilateral leg pain Disposition: 01 HOME / SELF CARE / HOMELESS Is pt being admited?: No Does the pt Need Aspirin: No Condition: Stable Additional Instructions: Please use medication as prescribed. Please follow-up with your primary care doctor. Follow-up with orthopedic doctor. Return to emergency room for any new or worsening symptoms. Prescriptions: Gabapentin 100 mg PO TID #90 capsule Meloxicam [Mobic] 15 mg PO DAILY #10 tablet Menthol/Camphor [Wallis Valentine Ointment] 1 applicatio TP BID #18 oint...g. traMADoL [Ultram 50 MG tab] 50 mg PO Q6HR PRN #12 tablet PRN Reason: Pain , Severe (7-10) Referrals: ROXANNA CONDON MD [Staff Physician] - 2-3 Days [facility] [Provider Group] - 2-3 Days Time of Disposition: 19:39 Print Language: BULGARIAN
== END 2020-10-08 19:42 | disposition home or self-care (01) ==
LOC: ED 17:00
DX: M79.605 Pain in left leg (principal); M79.604 Pain in right leg; I10 Essential (primary) hypertension; I63.9 Cerebral infarction, unspecified; J45.909 Unspecified asthma, uncomplicated; F17.200 Nicotine dependence, unspecified, uncomplicated; Z88.2 Allergy status to sulfonamides
CPT/HCPCS: 99283